=== PATIENT | male | born 1955 | race Caucasian/White ===

== ENCOUNTER 2017-12-28 11:09 | Outpatient (CLI) | payer MEDICARE ==
[2015-06-06 15:45] VITALS: BP 134/82
[2017-12-28 12:13] LABS: eGFR (African) 56; eGFR (Non-African) 47
== END 2017-12-28 13:27 ==
LOC: LAB 11:09
PROVIDERS: ATTEND Nurse Practitioner Family
DX: E11.9 Type 2 diabetes mellitus without complications (principal)
CPT/HCPCS: 36415; 80053; 82043; 83036